=== PATIENT | female | born 1985 | race African-American/Black ===

== ENCOUNTER 2017-08-18 09:37 | Emergency (ER) | payer MEDICAID, OTHER ==
[~2017-08-18] VITALS: Ht 172.7 cm; Wt 82.0 kg
[2017-08-18] MEDS ORDERED: ALBU18HF2 IH (09:58)
[2017-08-18 14:46] VITALS: BP 122/82
== END 2017-08-18 15:03 | disposition home or self-care (01) ==
LOC: ER 12:15
DX: J06.9 Acute upper respiratory infection, unspecified (principal); Z98.890 Other specified postprocedural states
CPT/HCPCS: 99282

== ENCOUNTER 2020-11-02 15:13 | Emergency (ER) | payer OTHER ==
[~2020-11-02] VITALS: Ht 167.6 cm; Wt 91.0 kg
[~2020-11-02 15:13] MED LIST: ALBU18HF2 IH
[2020-11-02] MEDS ORDERED: FENTANYL CITRATE/PF 50MCG/ML 2ML VIAL IV ONE (15:30)
[2020-11-02] MEDS ORDERED: SODIUM CHLORIDE 0.9% 1,000 ML IV ONE (15:30)
[2020-11-02] MEDS ORDERED: CEFAZOLIN 1000MG PREMIX 50 ML IV ONE (15:30)
[2020-11-02] MEDS ORDERED: TETANUS, DIPHTHERIA, PERTUSSIS VAC/PF 0.5ML (>7YR OLD) IM ONE (15:30)
[2020-11-02 15:55] LABS: HEMATOCRIT. 24.4 % (36.0-48.0); HEMOGLOBIN. 7.4 g/dL (12.0-16.0); MEAN CORPUSCULAR HEMOGLOBIN 19.7 pg (28.0-32.0); MEAN CORPUSCULAR VOLUME 64.8 fL (81.0-99.0); MEAN PLATELET VOLUME 9.4 fl (7.4-10.4); PLATELET 166 x1000/uL (130-400); RED BLOOD CELL COUNT 3.77 mill/uL (4.2-5.4); RED CELL DISTRIBUTION WIDTH 25.7 % (11.6-14.6)
[2020-11-02 15:56] LABS: CHLORIDE 111 mEq/L (98-107)
[2020-11-02 16:03] LABS: HCG SCREEN NEGATIVE
[2020-11-02 16:04] LABS: PARTIAL THROMBOPLASTIN TIME 23.3 sec (23.4-31.0); PROTHROMBIN TIME 10.9 sec (9.6-11.0)
[2020-11-02 16:21] VITALS: BP 131/83
[2020-11-02 16:58] LABS: PLATELET ESTIMATE NORMAL
[2020-11-02] MEDS ORDERED: IOHEXOL-350 100 ML BOTTLE ONE (22:37)
== END 2020-11-02 16:39 | disposition short-term general hospital (02) ==
LOC: ER 15:13
DX: S21.131A Puncture wound without foreign body of right front wall of thorax without penetration into thoracic cavity, initial encounter (principal); S41.131A Puncture wound without foreign body of right upper arm, initial encounter; W34.09XA Accidental discharge from other specified firearms, initial encounter; Y93.89 Activity, other specified; Y92.89 Other specified places as the place of occurrence of the external cause; Y99.8 Other external cause status; J45.909 Unspecified asthma, uncomplicated; Z98.890 Other specified postprocedural states
CPT/HCPCS: 36415; 71260; 73201; 74177; 80053; 83690; 84703; 85025; 85610; 85730; 86850; 86900; 86901; 96361; 96374; 99285; J3010; J7030; Q9967